=== PATIENT | female | born 1985 | race Caucasian/White ===

== ENCOUNTER 2016-10-25 10:18 | Emergency (ER) | payer OTHER ==
[~2016-10-25 10:18] MED LIST: ACETAMINOPHEN120 ML PO; ACIPHEX20 MG; ALLERGY PILL PO; AMOXICILLIN875 M1 PO; AMOXIL500 MG PO; ANUSOL HC25 MG/SUPP PR; AVENTYL HCL25 MG; BENTYL10 M1 PO; BENTYL10 MG PO; CALADRYL 1%-8%177 ML TP; CARAFATE1 G1 PO; CENESTIN; CHANTIX1 M1 PO; CICLOPIROX15 GM TP; CIPRO500 M2 PO; DEXILANT60 MG PO; ESTRACE2 MG PO; FLUCONAZOLE100 M2 PO; GUAIFENESIN-CODE5 M1 PO; HORMONE THERAPY PO; HYDROCHLOROTH12.5 M1 PO; HYDROCODONE/APA1 TAB PO; IBUPAIN-200200 MG PO; LEVAQUIN750 MG PO; LIBRAX; NORCO 5-325 TA1 EACH PO; NORCO 5/325 TAB1 TAB PO; NORCO 7.5-3251 EACH PO; NORCO 7.5/325 T1 TAB PO; OXYCODON-ACETA1 EAC4 PO; PERCOCET 5-3251 EACH PO; PROTONIX40 M2 PO; PYRIDIUM100 M2 PO; REGLAN5 MG; TYLENOL500 MG PO; VALTREX500 MG; VICODIN 5/500 T1 TAB PO; VITAMIN B12 IM; VITAMIN D350000 UNIT PO; VITAMIN D50000 UNI1 PO; ZOFRAN4 M2 PO; ZOFRAN4 MG PO; ZOFRAN8 MG PO; [UNRECOGNIZED DRUG - OTHER] IM; [UNRECOGNIZED DRUG - REMARK]
[2016-10-25] MEDS ORDERED: VITAMIN D3 (10:54)
[2016-10-25] MEDS ORDERED: PREMARIN1.25 M1 PO (10:54)
[2016-10-25] MEDS ORDERED: DEXILANT60 M1 PO (10:55)
[2016-10-25 11:20] LABS: URINE BILIRUBIN NEGATIVE (NEG); URINE BLOOD NEGATIVE (NEG); URINE GLUCOSE (UA) NEGATIVE (NEG); URINE KETONE NEGATIVE (NEG); URINE LEUKOCYTE ESTERASE NEGATIVE (NEG); URINE NITRITE NEGATIVE (NEG); URINE PROTEIN NEGATIVE (NEG); URINE SPECIFIC GRAVITY 1.005 (1.003-1.030)
[2016-10-25 11:21] LABS: URINE APPEARANCE CLEAR; URINE COLOR PALE YELLOW
[2016-10-25 11:30] LABS: BASO % 0.7 % (0-2); BASO ABSOLUTE COUNT 0.1 tho/cmm (0.0-0.2); EOS % 2.6 % (0-7); EOSINOPHIL ABSOLUTE COUNT 0.2 tho/cmm (0.0-0.7); HCT-HEMATOCRIT 41.5 % (34.0-49.0); HGB-HEMOGLOBIN 14.3 gm/dl (12.0-15.5); IMMATURE GRANULOCYTES ABSOLUTE 0.01 tho/cmm (0-0.03); IMMATURE GRANULOCYTES PERCENT 0.1 % (0-0.3); LYMPH % 45.3 % (20-45); LYMPH ABSOLUTE COUNT 3.3 tho/cmm (0.8-4.5); MCH (MEAN CORPUSCULAR HGB) 31.8 pg (28.0-32.0); MCHC MEAN CORPUSCULAR HGB CONC 34.5 % (32.0-36.0); MCV (MEAN CELL VOLUME) 92.2 fl (82.0-96.0); MEAN PLATELET VOLUME 10.9 cmc (9.4-12.4); MONOCYTE ABSOLUTE COUNT 0.5 tho/cmm (0.0-1.2); NEUTROPHIL ABSOLUTE COUNT 3.2 tho/cmm (1.6-8.0); NEUTROPHIL-AUTOMATED 3.2 tho/cmm (1.6-8.0); NEUTROPHILS % 44.3 % (40-80); PLATELET COUNT 282 tho/cmm (150-450); RED CELL DISTRIBUTION WIDTH 12.8 % (12.4-16.4); WHITE BLOOD COUNT 7.3 tho/cmm (4.0-10.0)
[2016-10-25 11:53] LABS: ALB/GLOB RATIO 1.3 (0.8-2.0); ALBUMIN 3.9 g/dl (3.5-5.0); ALKALINE PHOSPHATASE 72 U/L (33-138); ALT/SGPT 28 U/L (12-78); BILIRUBIN,TOTAL 0.5 mg/dl (0-1.5); BLOOD UREA NITROGEN 9 mg/dl (6-24); CALCIUM 8.4 mg/dl (8.5-10.5); CARBON DIOXIDE-VENOUS 27 mmol/L (22-32); CHLORIDE 109 mmol/l (96-110); CREATININE 0.86 mg/dl (0.50-1.10); GLUCOSE 86 mg/dL (70-110); SODIUM 140 mmol/L (135-145); eGFR VALUE FOR BLACK >90 mL/Min
[2016-10-25 12:18] LABS: ANION GAP 8 mmol/L (0-20); AST/SGOT 31 U/L (10-40); C-REACTIVE PROTEIN <0.3 mg/dl (0-0.9); POTASSIUM 4.3 mmol/L (3.7-5.1)
[2016-10-25] MEDS ORDERED: NORCO 5-325 TA1 EACH PO (13:25)
== END 2016-10-25 13:30 ==
LOC: EDMED 10:18
PROVIDERS: Physician Assistant
DX: R10.31 Right lower quadrant pain (principal); R10.33 Periumbilical pain; F17.210 Nicotine dependence, cigarettes, uncomplicated; Z87.442 Personal history of urinary calculi
CPT/HCPCS: J2270; J2405; J7030; Q9967